=== PATIENT | female | born 1965 | race Caucasian/White ===

== ENCOUNTER 2019-07-20 03:31 | Emergency (ER) | payer SELFPAY ==
--- NOTE | 2019-07-20 05:16 | ER Document Report ---
HPI - HPI Patient complains to provider of: Urinary symptoms Time Seen by Provider: 07/20/19 04:49 Onset: Other - 1 year Onset/Duration: Worse Quality of pain: Burning Pain Level: 4 Context: Patient presents complaining of dysuria and malodorous urine. Patient complains of nausea as well. Patient states she has had dysuria for the past year but the symptoms worsened today. Patient states that she has had nausea for the past 2 years. Patient denies any fever. Patient denies any abdominal tenderness. Associated Symptoms: Nausea, Other - Dysuria. denies: Fever, Vomiting Exacerbated by: Denies Relieved by: Denies Similar symptoms previously: Yes Recently seen / treated by doctor: No - ROS ROS below otherwise negative: Yes Systems Reviewed and Negative: Yes All other systems reviewed and negative - CONSTITUTIONAL Constitutional: DENIES: Fever, Chills - NEURO Neurology: REPORTS: Headache. DENIES: Weakness - URINARY Urinary: REPORTS: Dysuria, Urgency, Frequency - DERM Skin Color: Normal Skin Problems: None Past Medical History - General Information source: Patient - Social History Smoking Status: Never Smoker Frequency of alcohol use: None Drug Abuse: None Lives with: Alone Family History: Reviewed & Not Pertinent Patient has homicidal ideation: No Pulmonary Medical History: Reports: Hx Asthma Renal/ Medical History: Reports: Hx Kidney Stones Musculoskeletal Medical History: Reports Hx Arthritis Past Surgical History: Reports: Hx Hysterectomy, Hx Urinary Tract Surgery Vertical Provider Document - CONSTITUTIONAL Agree With Documented VS: Yes Exam Limitations: No Limitations General Appearance: WD/WN, No Apparent Distress - HEENT HEENT: Atraumatic, Normocephalic - NECK Neck: Normal Inspection - RESPIRATORY Respiratory: Breath Sounds Normal, No Respiratory Distress - CARDIOVASCULAR Cardiovascular: Regular Rate, Regular Rhythm - GI/ABDOMEN Gastrointestinal: Abdomen Soft, Abdomen Tender - suprapubic - BACK Back: Abnormal Inspection - Lower lumbar paraspinal tenderness. negative: CVA Tenderness-Right, CVA Tenderness-Left - MUSCULOSKELETAL/EXTREMETIES Musculoskeletal/Extremeties: ODELL SELLERS - NEURO Level of Consciousness: Awake, Alert, Appropriate Motor/Sensory: No Motor Deficit - DERM Integumentary: Warm, Dry, No Rash Course - Re-evaluation Re-evalutation: 07/20/19 07:00 Patient nontoxic in appearance. Patient with complaints of malodorous urine and dysuria. Patient with very minimal hematuria and leukocyte esterase. Patient denies any concerns about STI as she has not been sexually active for 4 years. No concern for pyelonephritis or any obstructive uropathy at this time. Patient encouraged to follow-up with a primary care provider for recheck. Discussed wo rsening signs or symptoms that patient should return immediately for. - Vital Signs Vital signs: Temp Pulse Resp BP Pulse Ox 98.1 F 97 16 148/82 H 97 07/20/19 03:40 07/20/19 03:40 07/20/19 03:40 07/20/19 03:40 07/20/19 03:40 - Laboratory Laboratory results interpreted by me: 07/20/19 06:46 Labs- Entire Visit 07/20/19 03:40 Urine Color STRAW Urine Appearance SLIGHTLY-CLOUDY Urine pH 8.0 Ur Specific [place] 1.010 Urine Protein NEGATIVE Urine Glucose (UA) NEGATIVE Urine Ketones NEGATIVE Urine Blood SMALL H Urine Nitrite NEGATIVE Urine Bilirubin NEGATIVE Urine Urobilinogen NEGATIVE Ur Leukocyte Esterase TRACE H Urine WBC (Auto) 1 Urine RBC (Auto) 0 Squamous Epi Cells Auto <1 Urine Mucus (Auto) RARE Urine Ascorbic Acid NEGATIVE Discharge - Discharge Clinical Impression: Dysuria, Nausea Condition: Stable Disposition: HOME, SELF-CARE Instructions: Antinausea Medication ([facility]), Cephalexin ([facility]), Nausea or Vomiting, Nonspecific ([facility]), Urinary Tract Infection ([facility]) Additional Instructions: Return immediately for any new or worsening symptoms Followup with your primary care provider, call tomorrow to make a followup appointment Prescriptions: Cephalexin Monohydrate [Keflex 500 mg Capsule] 500 mg PO BID 5 Days #10 capsule Phenazopyridine HCl [Pyridium 200 mg Tablet] 200 mg PO TID #15 tablet Ondansetron [Zofran Odt 4 mg Tablet] 1 tab PO Q6H PRN #15 tab.rapdis PRN Reason: Referrals: [facility] [Provider Group] - Follow up as needed [facility] [Provider Group] - Follow up as needed
[2019-07-20 05:18] LABS: APPEARANCE,URINE SLIGHTLY-CLOUDY; BILIRUBIN,URINE NEGATIVE (NEGATIVE); COLOR,URINE STRAW; GLUCOSE, URINE NEGATIVE (NEGATIVE); KETONES,URINE NEGATIVE (NEGATIVE); LEUKOCYTE ESTERASE,URINE TRACE (NEGATIVE); NITRITE,URINE NEGATIVE (NEGATIVE); PROTEIN,URINE NEGATIVE (NEGATIVE); UROBILINOGEN,URINE NEGATIVE mg/dL (<2.0)
[2019-07-20] MEDS ORDERED: CEPHALEXIN 500 MG CAPSULE PO ONE (06:17)
[2019-07-20] MEDS ORDERED: ONDANSETRON 4 MG TAB.RAPDIS PO ONE (06:17)
[2019-07-20 07:19] VITALS: BP 143/77
== END 2019-07-20 07:26 | disposition home or self-care (01) ==
LOC: ER 03:31
DX: R30.0 Dysuria (principal); R11.0 Nausea; R51 Headache; Z87.442 Personal history of urinary calculi; Z90.710 Acquired absence of both cervix and uterus
CPT/HCPCS: 99283; 87086; 87088; 81001; S0119

== ENCOUNTER 2019-07-23 11:41 | Emergency (ER) | payer SELFPAY ==
--- NOTE | 2019-07-23 12:32 | ER Document Report ---
ED Psych Disorder / Suicide <SAMI LAMBERT Raissa - Last Filed: 07/23/19 16:02> <GERALD OJEDA - Last Filed: 07/23/19 18:56> - General Chief Complaint: Psych Problem Stated Complaint: VOMITING Time Seen by Provider: 07/23/19 11:54 Notes: CHIEF COMPLAINT: Multiple complaints HPI: Patient is difficult to obtain history from given her disorganized thinking pattern. A 54-year-old female presenting for multiple complaints. Patient she has dysuria and malodorous urine. Patient states that she has shortness of breath. Patient states that she had a chip put in her arm to follow her because she is COVID positive. Patient states that she needs to confess to multiple different families and to the police but cannot verbalize directly what it is she needs to confess to. Patient denies significant medical history other than kidney stones. Patient denies any psychiatric history. Patient states that she lives alone in town does not have family nearby cannot verbalize directly what she does for work. Patient does not have fever. She does not have current chest pain or cough or shortness of breath. Patient believes that people are following her and listening in on her conversations and talking about her no matter where she goes or what she does. She does not know whether she has had a COVID test. ROS: See HPI -limited secondary to mental status Constitutional: no fever Eyes: no drainage, no blurred vision ENT: no runny nose, no sore throat Cardiovascular: no chest pain Resp: no SOB, no cough GI: no vomiting, no diarrhea, + abdominal pain : + dysuria Integumentary: no rash Allergy: no hives Musculoskeletal: no extremity pain or swelling Neurological: no numbness/tingling, no weakness MEDICATIONS: I agree with the patient medications as charted by the RN. ALLERGIES: I agree with the allergies as charted by the RN. PAST MEDICAL HISTORY/PAST SURGICAL HISTORY: Reviewed and agree as charted by RN. SOCIAL HISTORY: Reviewed and agree as charted by RN. FAMILY HISTORY: No significant familial comorbid conditions directly related to patient complaint EXAM: Reviewed vital signs as charted by RN. CONSTITUTIONAL: Alert and oriented but answering all questions inappropriately. Well-appearing; well-nourished HEAD: Normocephalic; atraumatic EYES: PERRL; Conjunctivae clear, sclerae non-icteric ENT: normal nose; no rhinorrhea; moist mucous membranes; pharynx without lesions noted, no uvula edema or deviation, no tonsillar hypertrophy, phonation normal NECK: Supple without meningismus; non-tender; no cervical lymphadenopathy, no masses CARD: RRR; no murmurs, no clicks, no rubs, no gallops; symmetric distal pulses RESP: Normal chest excursion without splinting or tachypnea; breath sounds clear and equal bilaterally; no wheezes, no rhonchi, no rales, pulse oximetry 99% on room air not hypoxic ABD/GI: Normal bowel sounds; non-distended; soft, non-tender, no rebound, no guarding; no palpable organomegaly or masses. BACK: The back appears normal and is non-tender to palpation, there is no CVA tenderness EXT: Normal ROM in all joints; non-tender to palpation; no cyanosis, no effusions, no edema SKIN: Normal color for age and race; warm; dry; good turgor; no acute lesions noted NEURO: Moves all extremities equally; Motor and sensory function intact PSYCH: The patient's mood and manner are confused, paranoid, easily distracted, sense of persecution. Grooming and personal hygiene are appropriate. MDM: 54-year-old female presenting for multiple vague physical complaints. Patient is very paranoid believes she is being persecuted believes she has had a chip placed in her arm to track her because she is a COVID patient although she has never had a known COVID test. Patient believes that people are following her and listening in on her conversations. Patient is easily distracted in her conversation and has rambling conversations on multiple topics switching from one topic to another even though they are not related. Patient was seen several days ago for UTI symptoms, no notes about patient's mental status at that time. We have no other history on the patient that can be ascertained at this time. Will obtain screening psychiatric labs to ensure there is no organic cause. Will obtain chest x-ray, plan for CT if possible to ensure that there is no metastatic illness causing patient's paranoia and altered mentation (SAMI LAMBERT) Past Medical History - Social History Smoking Status: Unknown if Ever Smoked Family History: Reviewed & Not Pertinent Patient has homicidal ideation: No Pulmonary Medical History: Reports: Hx Asthma Renal/ Medical History: Reports: Hx Kidney Stones Musculoskeletal Medical History: Reports Hx Arthritis Past Surgical History: Reports: Hx Hysterectomy, Hx Urinary Tract Surgery <SAMI LAMBERT - Last Filed: 07/23/19 16:02> Physical Exam - Vital signs Vitals: Temp Pulse Resp BP Pulse Ox 97.8 F 95 20 137/91 H 97 07/23/19 11:56 07/23/19 11:56 07/23/19 11:56 07/23/19 11:56 07/23/19 11:56 Course - Laboratory Result Diagrams: 07/23/19 12:42 07/23/19 12:42 <SAMI LAMBERT - Last Filed: 07/23/19 16:02> - Laboratory Result Diagrams: 07/23/19 12:42 07/23/19 12:42 <GERALD OJEDA - Last Filed: 07/23/19 18:56> - Re-evaluation Re-evalutation: 07/23/19 12:36 I did speak to Odilia and Kyara from the psychiatric team about the patient 07/23/19 15:22 Patient is medically cleared for psychiatric service 07/23/19 16:[address] Von MD attending. will follow (SAMI LAMBERT) - Vital Signs Vital signs: Temp Pulse Resp BP Pulse Ox 97.8 F 95 20 137/91 H 97 07/23/19 12:09 07/23/19 11:56 07/23/19 11:56 07/23/19 11:56 07/23/19 11:56 - Laboratory Laboratory results interpreted by me: 07/23/19 07/23/19 12:42 13:10 Urine Ketones TRACE H Salicylates < 1.0 L Acetaminophen < 10 L Discharge <SAMI LAMBERT - Last Filed: 07/23/19 16:02> <GERALD OJEDA - Last Filed: 07/23/19 18:56> - Discharge Clinical Impression: Psychosis Condition: Stable Disposition: HOME, SELF-CARE Additional Instructions: You have been evaluated by both medical and behavioral health teams for altered mental status and psychosis. You have been deemed appropriate for discharge. While in the emergency department you received the following services: Medical screening and assessment, nursing services, dietary services, pharmacological services, one-on-one counseling and/or psychotherapy, environmental services, and continuous observation by a patient safety belt installer. Medication recommendations have been provided and are as follows: one time dose of Zyprexa 5MG for mood stabilization/psychosis/impulse control and Cogentin 1MG to curb tremor side effects that can be common with medications like Zyprexa. It is important to take medications like these as prescribed in order to maintain symptoms of Post Traumatic Stress Disorder (often mimics Bipolar symptoms, depression and anxiety are also common). Altered Mental Status An altered mental status is a change in the normal functioning of the brain. This alteration of function can range from minor decreased brain function with some forgetfulness and confusion to complete loss of consciousness and coma. There are many possible causes of an altered mental status and include brain injuries such as trauma or strokes, problems with oxygen supply to the brain, fever and infections of the brain and/or elsewhere in the body, metabolic abnormalities such as low or high blood sugar, overdoses or excessive medication ingestion, and mental and psychiatric illnesses. Sometimes the altered mental status resolves and a definite cause is not determined. If a cause for your altered mental status was found, it has likely been corrected. Your evaluation has not shown any condition that requires that you be admitted to the hospital. It is believed that you are safe to leave and return to your home. If you have a return of your symptoms, you should return for re-evaluation. Bipolar Disorder (many of these symptoms are seen in Post Traumatic Stress Disorder, also depression and anxiety are common) Bipolar disorder is also called manic-depressive disorder. Depression alternates with brain hyperactivity called pedro. Each phase lasts from several days to a few weeks. We don't know exactly what causes bipolar disorder, but it's treatable. During the "manic phase," you may feel elated and energetic. You may have racing thoughts, rapid speech, increased activity, and grandiose ideas. During this time, you may not realize how poor your judgement is. Inappropriate spending, drug abuse, excessive alcohol use, marriage problems, and irresponsible sexual behavior are common during the manic phase. During the "depressive phase," you might feel depressed, guilty, worthless, fatigued, and unable to concentrate. You might have thoughts of suicide. Good treatments are available for bipolar disorder. [place] is a classic drug for bipolar disorder, and is still often useful. If the manic phase is very mild, an antidepressant alone can be prescribed. If the manic phase is very severe, an antipsychotic medicine (such as Haldol) may be needed. The treatment must be matched to your symptoms, so it's important to work closely with your psychiatric care provider. Contact your physician, the hospital emergency center, crisis line, or your counsellor if you are losing control or having self-destructive thoughts. Follow-Up: You are recommended to go voluntarily to [facility] for short term stabilization since you have been of medications for at least a couple months likely longer. They can assist with medication stabilization for 3-5 day period, discharge with prescriptions and provide stella kage for ongoing mental health services. If symptoms persist or worsen contact your physician immediately, return to the emergency department at any time or utilize mobile crisis. Referrals: [facility] [Outside] - Follow up as needed [facility] [Outside] - Follow up as needed [facility] [Outside] - Follow up as needed (Walk in Sunday-Sunday 8:00AM-12:00PM) [facility] [Outside] - Follow up as needed (Walk in Sunday-Sunday from 8:00AM-4:30PM)
[2019-07-23 12:53] LABS: ABSOLUTE LYMPHOCYTES (AUTO) 1.6 10^3/uL (0.5-4.7); ABSOLUTE MONOCYTES (AUTO) 0.4 10^3/uL (0.1-1.4); ABSOLUTE NEUT (AUTO) 2.2 10^3/uL (1.7-8.2); BASOPHILS % (AUTO) 0.7 % (0-2); EOSINOPHILS % (AUTO) 0.5 % (0-6); HEMATOCRIT 40.6 % (36.0-47.0); HEMOGLOBIN 14.2 g/dL (12.0-15.5); LYMPHOCYTES % (AUTO) 37.8 % (13-45); MEAN CORPUSCULAR HEMOGLOBIN 31.6 pg (27.0-33.4); MEAN CORPUSCULAR VOLUME 91 fl (80-97); MONOCYTES % (AUTO) 8.7 % (3-13); PLATELET COUNT 234 10^3/uL (150-450); RED BLOOD COUNT 4.49 10^6/uL (3.72-5.28); SEGMENTED NEUTROPHILS % (AUTO) 52.3 % (42-78); TOTAL CELLS COUNTED % (AUTO) 100 %; WHITE BLOOD COUNT 4.1 10^3/uL (4.0-10.5)
[2019-07-23 13:15] LABS: ALBUMIN 4.6 g/dL (3.5-5.0); ALKALINE PHOSPHATASE 94 U/L (38-126); ANION GAP 7 (5-19); ASPARTATE AMINO TRANSFERASE 23 U/L (14-36); BILIRUBIN,TOTAL 0.5 mg/dL (0.2-1.3); BLOOD UREA NITROGEN 18 mg/dL (7-20); CALCIUM 10.1 mg/dL (8.4-10.2); CARBON DIOXIDE 30 mmol/L (22-30); CHLORIDE 101 mmol/L (98-107); GLUCOSE 87 mg/dL (75-110); POTASSIUM 4.2 mmol/L (3.6-5.0)
[2019-07-23 13:16] LABS: ACETAMINOPHEN < 10 ug/mL (10-30); ALCOHOL < 10 mg/dL (NONE DETECTED); SALICYLATE < 1.0 mg/dL (2.0-20.0)
--- NOTE | 2019-07-23 14:02 | RADIOLOGY REPORT (SQ) ---
EXAM DESCRIPTION: CHEST SINGLE VIEW IMAGES COMPLETED DATE/TIME: 07/23/2019 1:50 pm REASON FOR STUDY: AMS COMPARISON: None. EXAM PARAMETERS: NUMBER OF VIEWS: One view. TECHNIQUE: An AP view of the chest was obtained. RADIATION DOSE: NA LIMITATIONS: None. FINDINGS: LUNGS AND PLEURA: No consolidation, pleural effusion or pneumothorax. MEDIASTINUM AND HILAR STRUCTURES: No mediastinal or hilar contour abnormality. HEART AND VASCULAR STRUCTURES: The cardiac silhouette and pulmonary vasculature are within normal [place] its. BONES: No acute findings. HARDWARE: None in the chest. OTHER: No other finding. IMPRESSION: No acute cardiopulmonary process. TECHNICAL DOCUMENTATION: JOB ID: [id number] 2010 [employer]- All Rights Reserved Reading location - IP/workstation name: [email or web address]
--- NOTE | 2019-07-23 14:37 | RADIOLOGY REPORT (SQ) ---
EXAM DESCRIPTION: CT HEAD WITHOUT IMAGES COMPLETED DATE/TIME: 07/23/2019 2:21 pm REASON FOR STUDY: AMS COMPARISON: None. TECHNIQUE: Axial images acquired through the brain without intravenous contrast. Images reviewed wi th bone, brain and subdural windows. Additional sagittal and coronal reconstructions were generated. Images stored on PACS. All CT scanners at this facility use dose modulation, iterative reconstruction, and/or weight based d osing when appropriate to reduce radiation dose to as low as reasonably achievable (ALARA). [facility]: Dose Right [facility]: CareDose [facility]: Dose Right [facility]: Teradose 4D [facility]: [employer] RADIATION DOSE: CT Rad equipment meets quality standard of care and radiation dose reduction techniq ues were employed. CTDIvol: 53.2 mGy. DLP: 1070 mGy-cm. LIMITATIONS: None. FINDINGS: There is no acute intracranial hemorrhage, vascular territorial infarct, extra-axial fluid collection, mass effect or midline shift. The benitez-white matter differentiation is preserved. Ther e is no effacement of the cerebral sulci or basal subarachnoid cisterns. The caliber of the ventricl es is concordant with the degree of sulcation. The orbits and globes are intact. The paranasal sinuses are clear. There is no fracture of the calv arium. IMPRESSION: No acute intracranial abnormality. EVIDENCE OF ACUTE STROKE: NO. COMMENT: Quality ID # [id number]: Final reports with documentation of one or more dose reduction techniques (e.g., Automated exposure control, adjustment of the mA and/or kV according to patient size, use of iterative reconstruction technique) TECHNICAL DOCUMENTATION: JOB ID: [id number] 2010 [employer]- All Rights Reserved Reading location - IP/workstation name: [email or web address]
[2019-07-23 16:53] LABS: APPEARANCE,URINE CLEAR; BILIRUBIN,URINE NEGATIVE (NEGATIVE); CALCIUM OXALATE CRYSTALS,URINE FEW /HPF; COLOR,URINE YELLOW; GLUCOSE, URINE NEGATIVE (NEGATIVE); KETONES,URINE TRACE mg/dL (NEGATIVE); LEUKOCYTE ESTERASE,URINE NEGATIVE (NEGATIVE); NITRITE,URINE NEGATIVE (NEGATIVE); PROTEIN,URINE NEGATIVE (NEGATIVE); UROBILINOGEN,URINE NEGATIVE mg/dL (<2.0)
[2019-07-23 17:08] LABS: URINE AMPHETAMINES SCREEN NEGATIVE; URINE BARBITURATES SCREEN NEGATIVE; URINE BENZODIAZEPINES SCREEN NEGATIVE; URINE COCAINE SCREEN NEGATIVE; URINE MARIJUANA (THC) SCREEN NEGATIVE; URINE METHADONE SCREEN NEGATIVE; URINE PHENCYCLIDINE SCREEN NEGATIVE
[2019-07-23] MEDS ORDERED: OLANZAPINE 5 MG TABLET PO ONE (18:15)
[2019-07-23] MEDS ORDERED: BENZTROPINE MESYLATE 1 MG TABLET PO ONE (18:15)
--- NOTE | 2019-07-23 19:29 | ER Document Report ---
ED Medical Screen (RME) - General Chief Complaint: Psych Problem Stated Complaint: VOMITING Time Seen by Provider: 07/23/19 11:54 Primary Care Provider: [facility] [Outside] - Follow up as needed (Walk in Sunday- Sunday 8:00AM-12:00PM) [facility] [Outside] - Follow up as needed [facility] [Outside] - Follow up as needed (Walk in Sunday-Sunday from 8:00AM-4:30PM) [facility] [Outside] - Follow up as needed Past Medical History Pulmonary Medical History: Reports: Hx Asthma Renal/ Medical History: Reports: Hx Kidney Stones Musculoskeltal Medical History: Reports Hx Arthritis Past Surgical History: Reports: Hx Hysterectomy, Hx Urinary Tract Surgery Physical Exam - Vital signs Vitals: Temp Pulse Resp BP Pulse Ox 97.8 F 95 20 137/91 H 97 07/23/19 11:56 07/23/19 11:56 07/23/19 11:56 07/23/19 11:56 07/23/19 11:56 Course - Vital Signs Vital signs: Temp Pulse Resp BP Pulse Ox 97.8 F 95 20 137/91 H 97 07/23/19 12:09 07/23/19 11:56 07/23/19 11:56 07/23/19 11:56 07/23/19 11:56 - Laboratory Result Diagrams: 07/23/19 12:42 07/23/19 12:42 Laboratory results interpreted by me: 07/23/19 07/23/19 12:42 13:10 Urine Ketones TRACE H Salicylates < 1.0 L Acetaminophen < 10 L Doctor's Discharge - Discharge Clinical Impression: Psychosis Qualifiers: Psychosis type: unspecified psychosis type Qualified Code(s): F29 - Unspecified psychosis not due to a substance or known physiological condition Condition: Stable Disposition: PSYCH HOSP/UNIT Instructions: Schizophrenia ([facility]) Additional Instructions: You have been evaluated by both medical and behavioral health teams for altered mental status and psychosis. You have been deemed appropriate for discharge. While in the emergency department you received the following services: Medical screening and assessment, nursing services, dietary services, pharmacological services, one-on-one counseling and/or psychotherapy, environmental services, and continuous observation by a patient marine safety officer. Medication recommendations have been provided and are as follows: one time dose of Zyprexa 5MG for mood stabilization/psychosis/impulse control and Cogentin 1MG to curb tremor side effects that can be common with medications like Zyprexa. It is important to take medications like these as prescribed in order to maintain symptoms of Post Traumatic Stress Disorder (often mimics Bipolar symptoms, depression and anxiety are also common). Altered Mental Status An altered mental status is a change in the normal functioning of the brain. This alteration of function can range from minor decreased brain function with some forgetfulness and confusion to complete loss of consciousness and coma. There are many possible causes of an altered mental status and include brain injuries such as trauma or strokes, problems with oxygen supply to the brain, fever and infections of the brain and/or elsewhere in the body, metabolic abnormalities such as low or high blood sugar, overdoses or excessive medication ingestion, and mental and psychiatric illnesses. Sometimes the altered mental status resolves and a definite cause is not determined. If a cause for your altered mental status was found, it has likely been corrected. Your evaluation has not shown any condition that requires that you be admitted to the hospital. It is believed that you are safe to leave and return to your home. If you have a return of your symptoms, you should return for re-evaluation. Bipolar Disorder (many of these symptoms are seen in Post Traumatic Stress Disorder, also depression and anxiety are common) Bipolar disorder is also called manic-depressive disorder. Depression alternates with brain hyperactivity called pedro. Each phase lasts from several days to a few weeks. We don't know exactly what causes bipolar disorder, but it's treatable. During the "manic phase," you may feel elated and energetic. You may have racing thoughts, rapid speech, increased activity, and grandiose ideas. During this time, you may not realize how poor your judgement is. Inappropriate spending, drug abuse, excessive alcohol use, marriage problems, and irresponsible sexual behavior are common during the manic phase. During the "depressive phase," you might feel depressed, guilty, worthless, fatigued, and unable to concentrate. You might have thoughts of suicide. Good treatments are available for bipolar disorder. [place] is a classic drug for bipolar disorder, and is still often useful. If the manic phase is very mild, an antidepressant alone can be prescribed. If the manic phase is very severe, an antipsychotic medicine (such as Haldol) may be needed. The treatment must be matched to your symptoms, so it's important to work closely with your psychiatric care provider. Contact your physician, the hospital emergency center, crisis line, or your counsellor if you are losing control or having self-destructive thoughts. Follow-Up: You are recommended to go voluntarily to [facility] for short term stabilization since you have been of medications for at least a couple months likely longer. They can assist with medication stabilization for 3-5 day period, discharge with prescriptions and provide linkage for ongoing mental health services. If symptoms persist or worsen contact your physician immediately, return to the emergency department at any time or utilize mobile crisis. Referrals: [facility] [Outside] - Follow up as needed (Walk in Sunday- Sunday 8:00AM-12:00PM) [facility] [Outside] - Follow up as needed [facility] [Outside] - Follow up as needed (Walk in Sunday-Sunday from 8:00AM-4:30PM) [facility] [Outside] - Follow up as needed
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
--- NOTE | 2019-07-23 20:41 | EKG REPORT ---
SEVERITY:- ABNORMAL ECG - SINUS RHYTHM CONSIDER LEFT VENTRICULAR HYPERTROPHY : Confirmed by: Sofia Walsh 23-Jul-2019 20:40:11
[2019-07-23 21:44] VITALS: BP 149/80
== END 2019-07-23 20:00 ==
LOC: ER 11:41
DX: F29 Unspecified psychosis not due to a substance or known physiological condition (principal); R30.0 Dysuria; J45.909 Unspecified asthma, uncomplicated; Z87.442 Personal history of urinary calculi
CPT/HCPCS: 36415; 70450; 71045; 80053; 80307; 81001; 85025; 93005; 93010; 99285

== ENCOUNTER → 2019-08-06 | Outpatient (CLI) | payer SELFPAY ==
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
[2019-08-06 09:39] VITALS: BP 146/75
[2019-08-06 12:00] LABS: A TYPE INFLUENZA AG NEGATIVE (NEGATIVE); B INFLUENZA AG NEGATIVE (NEGATIVE)
== END ==
LOC: RDC 08:46
PROVIDERS: ATTEND Nurse Practitioner Family
DX: Z20.828 Contact with and (suspected) exposure to other viral communicable diseases (principal); R50.9 Fever, unspecified; M79.10 Myalgia, unspecified site; R09.89 Other specified symptoms and signs involving the circulatory and respiratory systems; J02.9 Acute pharyngitis, unspecified; R05 Cough; R06.02 Shortness of breath; R11.0 Nausea; R51 Headache; R19.7 Diarrhea, unspecified; J45.909 Unspecified asthma, uncomplicated
CPT/HCPCS: 87070; 87635; 87804; 87880; 99211; C9803

== ENCOUNTER 2019-10-27 06:19 | Emergency (ER) | payer SELFPAY ==
--- NOTE | 2019-10-27 08:17 | EKG REPORT ---
SEVERITY:- ABNORMAL ECG - SINUS RHYTHM LEFT ATRIAL ABNORMALITY PROBABLE LEFT VENTRICULAR HYPERTROPHY : Confirmed by: Sofia Walsh 27-Oct-2019 08:17:25
[2019-10-27 08:46] LABS: APPEARANCE,URINE CLEAR; BILIRUBIN,URINE NEGATIVE (NEGATIVE); COLOR,URINE YELLOW; GLUCOSE, URINE NEGATIVE (NEGATIVE); KETONES,URINE NEGATIVE (NEGATIVE); LEUKOCYTE ESTERASE,URINE SMALL (NEGATIVE); NITRITE,URINE NEGATIVE (NEGATIVE); PROTEIN,URINE NEGATIVE (NEGATIVE); UROBILINOGEN,URINE NEGATIVE mg/dL (<2.0)
[2019-10-27] MEDS ORDERED: ASPIRIN 81 MG TABLET, CHEWABLE PO ONE (08:48)
[2019-10-27] MEDS ORDERED: ONDANSETRON 4 MG TAB.RAPDIS PO ONE (08:51)
--- NOTE | 2019-10-27 08:53 | ER Document Report ---
ED General - General Chief Complaint: Abdominal Pain Stated Complaint: NAUSEA/BODY PAIN Time Seen by Provider: 10/27/19 08:13 Primary Care Provider: [facility] [Provider Group] - Follow up tomorrow HILDA HINES MD [ACTIVE STAFF] - Follow up tomorrow Mode of Arrival: Ambulatory Information source: Patient Notes: Patient presents with various complaints. Patient states she had lower pelvic discomfort for the past 4 months. Patient states she is had vaginal burning for the past week with a vaginal odor. Patient states she is had some dysuria as well as urinary frequency. Patient states that she has been told that it smells as though she has cancer or that she has an odor of about her and patient is concerned that she may have cancer. Patient denies any fever. Patient denies any vomiting or diarrhea. Patient does complain of mild cough for the past 3 months with chest discomfort for the past 2 days. - HPI Quality of pain: Burning Pain Level: 3 Associated symptoms: Chest pain, Nonproductive cough. denies: Diarrhea, Fever, Headache, Nausea, Vomiting, Shortness of breath, Sore throat Exacerbated by: Denies Relieved by: Denies Similar symptoms previously: Yes Recently seen / treated by doctor: No - Related Data Allergies/Adverse Reactions: NSAIDS (Non-Steroidal Anti-Inflamma Allergy (Verified 10/27/19 07:39) acetaminophen [From Percocet] Adverse Reaction (Verified 10/27/19 07:39) hydrocodone [From Vicodin] Adverse Reaction (Verified 10/27/19 07:39) morphine Adverse Reaction (Verified 10/27/19 07:39) oxycodone [From Percocet] Adverse Reaction (Verified 10/27/19 07:39) Past Medical History - General Information source: Patient - Social History Smoking Status: Never Smoker Frequency of alcohol use: None Drug Abuse: None Occupation: None Family History: Reviewed & Not Pertinent Pulmonary Medical History: Reports: Hx Asthma Renal/ Medical History: Reports: Hx Kidney Stones Musculoskeletal Medical History: Reports Hx Arthritis Psychiatric Medical History: Reports: Hx Anxiety, Hx Bipolar Disorder, Hx Post Traumatic Stress Disorder Past Surgical History: Reports: Hx Hysterectomy, Hx Urinary Tract Surgery Review of Systems - Review of Systems Constitutional: No symptoms reported. denies: Fever EENT: No symptoms reported Cardiovascular: Chest pain Respiratory: Cough. denies: Short of breath Gastrointestinal: Abdominal pain. denies: Diarrhea, Nausea, Vomiting Genitourinary: Dysuria, Frequency Female Genitourinary: Vaginal discharge, Vaginal odor Musculoskeletal: No symptoms reported Skin: No symptoms reported Hematologic/Lymphatic: No symptoms reported Neurological/Psychological: No symptoms reported Physical Exam - Vital signs Vitals: Temp Pulse Resp BP Pulse Ox 97.5 F 72 18 139/107 H 99 10/27/19 06:30 10/27/19 06:30 10/27/19 06:30 10/27/19 06:30 10/27/19 06:30 - General General appearance: Appears well, Alert In distress: None - HEENT Head: Normocephalic, Atraumatic Eyes: Normal Conjunctiva: Normal Nasal: Normal Mouth/Lips: Normal Mucous membranes: Normal Neck: Normal, Supple. No: Lymphadenopathy - Respiratory Respiratory status: No respiratory distress Chest status: Tender Breath sounds: Normal Chest palpation: Tender - Cardiovascular Rhythm: Regular Heart sounds: S1 appreciated, S2 appreciated Murmur: No - Abdominal Inspection: Normal Distension: No distension Bowel sounds: Normal Tenderness: Tender - lower pelvic. No: Guarding Organomegaly: No organomegaly - Genitourinary External exam: Normal Speculum exam: Other - post treatment changes consistent with history of hysterectomy. No: Vaginal discharge Bimanuel exam: Normal Notes: RN Marta as standby - Back Back: Normal, Nontender. No: CVA tenderness - Extremities General upper extremity: Normal inspection, Nontender, Normal strength General lower extremity: Normal inspection, Nontender, Normal strength - Neurological Neuro grossly intact: Yes Cognition: Normal Royal Coma Scale Eye Opening: Spontaneous Patricio Coma Scale Verbal: Oriented Patricio Coma Scale Motor: Obeys Commands Royal Coma Scale Total: 15 - Psychological Associated symptoms: Normal affect, Normal mood - Skin Skin Temperature: Warm Skin Moisture: Dry Skin Color: Normal Course - Re-evaluation Re-evalutation: 10/27/19 08:53 Patient awake alert and oriented, patient vague and evasive regarding her medi ilya history. Review of patient's previous record demonstrates a history of PTSD, bipolar and anxiety with a previous history of psychosis in which she did not want to be on medications as she did not like the way they made her feel. 10/27/19 14:33 Patient with minimal UTI noted on urinalysis, will culture urine and place patient on a short course of antibiotics. Presentation of chest pain in an otherwise well appearing patient. Low clinical suspicion for ACS given clinical history, exam, EKG without ST elevations or depressions, and negative initial troponin. HEART score less than or equal to 3. PE also seems unlikely given clinical history, absence of tachycardia or dyspnea. CXR without evidence of pneumothorax or pneumonia. No widened mediastinum. Chest pain in a patient without evidence of cardiac or other serious etiology on workup today. I discussed with patient that, based on their age, risk factors and emergency department testing today, the likelihood that their symptoms are related to a heart attack is very low. The patient demonstrates decision making capacity and has verbalized an understanding of these risks to me. Based on this, the patient has chosen to follow-up as an outpatient. Usual chest pain return precautions reviewed. The patient states understanding and agreement with this plan. - Vital Signs Vital signs: Temp Pulse Resp BP Pulse Ox 98.8 F 79 21 H 117/79 99 10/27/19 15:24 10/27/19 15:03 10/27/19 15:03 10/27/19 15:03 10/27/19 15:03 - Laboratory Result Diagrams: 10/27/19 10:00 10/27/19 10:00 Laboratory results interpreted by me: 10/27/19 10/27/19 08:11 10:00 Magnesium 2.4 H Urine Blood SMALL H Ur Leukocyte Esterase SMALL H 10/27/19 14:33 Labs- All tests 24 hr 10/27/19 10/27/19 10/27/19 08:11 10:00 10:00 WBC 4.1 RBC 4.41 Hgb 13.8 Hct 39.6 MCV 90 MCH 31.2 MCHC 34.8 RDW 12.8 Plt Count 247 Lymph % (Auto) 40.0 [place] % (Auto) 7.6 Eos % (Auto) 1.6 Baso % (Auto) 0.3 Absolute Neuts (auto) 2.1 Absolute Lymphs (auto) 1.6 Absolute Monos (auto) 0.3 Absolute Eos (auto) 0.1 Absolute Basos (auto) 0.0 Seg Neutrophils % 50.5 Sodium 138.3 Potassium 4.0 Chloride 101 Carbon Dioxide 30 Anion Gap 7 BUN 12 Creatinine 0.79 Est GFR ( Amer) > 60 Est GFR (MDRD) Non-Af > 60 Glucose 104 Calcium 10.0 Magnesium 2.4 H Total Bilirubin 0.7 Direct Bilirubin 0.0 Neonat Total Bilirubin Not Reportable Neonat Direct Bilirubin Not Reportable Neonat Indirect Bili Not Reportable AST 27 ALT 15 Alkaline Phosphatase 101 Creatine Kinase 128 Troponin I Total Protein 8.1 Albumin 4.7 TSH Urine Color YELLOW Urine Appearance CLEAR Urine pH 5.0 Ur Specific [place] 1.010 Urine Protein NEGATIVE Urine Glucose (UA) NEGATIVE Urine Ketones NEGATIVE Urine Blood SMALL H Urine Nitrite NEGATIVE Urine Bilirubin NEGATIVE Urine Urobilinogen NEGATIVE Ur Leukocyte Esterase SMALL H Urine WBC (Auto) 1 Urine RBC (Auto) 1 Urine Bacteria (Auto) TRACE Squamous Epi Cells Auto 1 Urine Mucus (Auto) RARE Urine Ascorbic Acid NEGATIVE Bacteria (Wet Prep) Trichomonas (Wet Prep) Vaginal WBC Vaginal Yeast Chlamydia DNA (PCR) N.gonorrhoeae DNA (PCR) 10/27/19 10/27/19 10/27/19 10:00 10:00 11:47 WBC RBC Hgb Hct MCV MCH MCHC RDW Plt Count Lymph % (Auto) [place] % (Auto) Eos % (Auto) Baso % (Auto) Absolute Neuts (auto) Absolute Lymphs (auto) Absolute Monos (auto) Absolute Eos (auto) Absolute Basos (auto) Seg Neutrophils % Sodium Potassium Chloride Carbon Dioxide Anion Gap BUN Creatinine Est GFR ( Amer) Est GFR (MDRD) Non-Af Glucose Calcium Magnesium Total Bilirubin Direct Bilirubin Neonat Total Bilirubin Neonat Direct Bilirubin Neonat Indirect Bili AST ALT Alkaline Phosphatase Creatine Kinase Troponin I < 0.012 Total Protein Albumin TSH 2.27 Urine Color Urine Appearance Urine pH Ur Specific [place] Urine Protein Urine Glucose (UA) Urine Ketones Urine Blood Urine Nitrite Urine Bilirubin Urine Urobilinogen Ur Leukocyte Esterase Urine WBC (Auto) Urine RBC (Auto) Urine Bacteria (Auto) Squamous Epi Cells Auto Urine Mucus (Auto) Urine Ascorbic Acid Bacteria (Wet Prep) Trichomonas (Wet Prep) Vaginal WBC Vaginal Yeast Chlamydia DNA (PCR) NOT DETECTED N.gonorrhoeae DNA (PCR) NOT DETECTED 10/27/19 10/27/19 11:47 13:02 WBC RBC Hgb Hct MCV MCH MCHC RDW Plt Count Lymph % (Auto) [place] % (Auto) Eos % (Auto) Baso % (Auto) Absolute Neuts (auto) Absolute Lymphs (auto) Absolute Monos (auto) Absolute Eos (auto) Absolute Basos (auto) Seg Neutrophils % Sodium Potassium Chloride Carbon Dioxide Anion Gap BUN Creatinine Est GFR ( Amer) Est GFR (MDRD) Non-Af Glucose Calcium Magnesium Total Bilirubin Direct Bilirubin Neonat Total Bilirubin Neonat Direct Bilirubin Neonat Indirect Bili AST ALT Alkaline Phosphatase Creatine Kinase Troponin I < 0.012 Total Protein Albumin TSH Urine Color Urine Appearance Urine pH Ur Specific [place] Urine Protein Urine Glucose (UA) Urine Ketones Urine Blood Urine Nitrite Urine Bilirubin Urine Urobilinogen Ur Leukocyte Esterase Urine WBC (Auto) Urine RBC (Auto) Urine Bacteria (Auto) Squamous Epi Cells Auto Urine Mucus (Auto) Urine Ascorbic Acid Bacteria (Wet Prep) 3+ BACTERIA SEEN Trichomonas (Wet Prep) NO TRICHOMONAS SEEN Vaginal WBC FEW WBCS SEEN Vaginal Yeast NO YEAST SEEN Chlamydia DNA (PCR) N.gonorrhoeae DNA (PCR) - Diagnostic Test Radiology reviewed: Reports reviewed - EKG Interpretation by Me EKG shows normal: Sinus rhythm Rate: Normal Rhythm: NSR Voltage: Consistent with LVH When compared to previous EKG there are: No significant change Additional EKG results interpreted by me: 10/27/19 09:38 Sinus rhythm with a rate of 81, QTc 432, no significant change when compared to prior, no acute ischemic changes Discharge - Discharge Clinical Impression: Concern about vaginal odor, Encounter for screening laboratory testing for COVID-19 virus Chest pain Qualifiers: Chest pain type: unspecified Qualified Code(s): R07.9 - Chest pain, unspecified UTI (urinary tract infection) Qualifiers: Urinary tract infection type: site unspecified Hematuria presence: without hematuria Qualified Code(s): N39.0 - Urinary tract infection, site not specified Condition: Stable Disposition: HOME, SELF-CARE Instructions: COVID-19 Guidance for Persons Under Investigation, Abdominal Pain ([facility]), Chest Pain of Unclear Cause ([facility]), Urinary Tract Infection ([facility]) Additional Instructions: Return immediately for any new or worsening symptoms Followup with your primary care provider, call tomorrow to make a followup appointment Follow-up with a archives specialist for further evaluation, call tomorrow to make a follow-up appointment Prescriptions: Cephalexin Monohydrate [Keflex 500 mg Capsule] 500 mg PO BID 5 Days #10 capsule Ondansetron [Zofran Odt 4 mg Tablet] 1 tab PO Q6H PRN #8 tab.rapdis PRN Reason: Referrals: [facility] [Provider Group] - Follow up tomorrow HILDA HINES MD [ACTIVE STAFF] - Follow up tomorrow
--- NOTE | 2019-10-27 09:40 | RADIOLOGY REPORT (SQ) ---
EXAM DESCRIPTION: CHEST SINGLE VIEW IMAGES COMPLETED DATE/TIME: 10/27/2019 9:31 am REASON FOR STUDY: cp COMPARISON: 07/23/2019 EXAM PARAMETERS: NUMBER OF VIEWS: One view. TECHNIQUE: Single frontal radiographic view of the chest acquired. RADIATION DOSE: NA LIMITATIONS: None. FINDINGS: LUNGS AND PLEURA: No opacities, masses or pneumothorax. No pleural effusion. MEDIASTINUM AND HILAR STRUCTURES: No masses. Contour normal. HEART AND VASCULAR STRUCTURES: Heart normal in size. Normal vasculature. BONES: No acute findings. HARDWARE: None in the chest. OTHER: No other significant finding. IMPRESSION: NO ACUTE RADIOGRAPHIC FINDING IN THE CHEST. TECHNICAL DOCUMENTATION: JOB ID: [id number] [employer]- All Rights Reserved Reading location - IP/workstation name: [email or web address]
[2019-10-27 10:56] LABS: ABSOLUTE EOSINOPHILS # (AUTO) 0.1 10^3/uL (0.0-0.6); ABSOLUTE LYMPHOCYTES (AUTO) 1.6 10^3/uL (0.5-4.7); ABSOLUTE MONOCYTES (AUTO) 0.3 10^3/uL (0.1-1.4); ABSOLUTE NEUT (AUTO) 2.1 10^3/uL (1.7-8.2); BASOPHILS % (AUTO) 0.3 % (0-2); EOSINOPHILS % (AUTO) 1.6 % (0-6); HEMATOCRIT 39.6 % (36.0-47.0); HEMOGLOBIN 13.8 g/dL (12.0-15.5); MEAN CORPUSCULAR HEMOGLOBIN 31.2 pg (27.0-33.4); MEAN CORPUSCULAR HGB CONC 34.8 g/dL (32.0-36.0); MEAN CORPUSCULAR VOLUME 90 fl (80-97); MONOCYTES % (AUTO) 7.6 % (3-13); PLATELET COUNT 247 10^3/uL (150-450); RED BLOOD COUNT 4.41 10^6/uL (3.72-5.28); RED CELL DISTRIBUTION WIDTH 12.8 % (11.5-14.0); SEGMENTED NEUTROPHILS % (AUTO) 50.5 % (42-78); TOTAL CELLS COUNTED % (AUTO) 100 %; WHITE BLOOD COUNT 4.1 10^3/uL (4.0-10.5)
[2019-10-27 11:18] LABS: ALBUMIN 4.7 g/dL (3.5-5.0); ALKALINE PHOSPHATASE 101 U/L (38-126); ANION GAP 7 (5-19); ASPARTATE AMINO TRANSFERASE 27 U/L (14-36); BILIRUBIN,TOTAL 0.7 mg/dL (0.2-1.3); BLOOD UREA NITROGEN 12 mg/dL (7-20); CARBON DIOXIDE 30 mmol/L (22-30); CHLORIDE 101 mmol/L (98-107); CREATINE KINASE 128 U/L (30-135); GLUCOSE 104 mg/dL (75-110); TOTAL PROTEIN 8.1 g/dL (6.3-8.2)
[2019-10-27 12:03] LABS: BACTERIA (WET MOUNT) 3+ BACTERIA SEEN; T.VAGINALIS (WET MOUNT) NO TRICHOMONAS SEEN; WBCS (WET MOUNT) FEW WBCS SEEN; YEAST (WET MOUNT) NO YEAST SEEN
[2019-10-27 13:31] LABS: CHLAM PCR NOT DETECTED (NOT DETECT)
--- NOTE | 2019-10-27 13:34 | RADIOLOGY REPORT (SQ) ---
EXAM DESCRIPTION: U/S NON-OB PELVIS LTD W/O DOP IMAGES COMPLETED DATE/TIME: 10/27/2019 12:11 pm REASON FOR STUDY: lower pelvic pain. Complete hysterectomy in 2016. COMPARISON: None. TECHNIQUE: Dynamic and static grayscale images acquired of the pelvis via transabdominal approach an d recorded on PACS. Additional selected color Doppler and spectral images recorded. LIMITATIONS: None. FINDINGS: There has been a complete hysterectomy. No pelvic mass or fluid. No adnexal mass. IMPRESSION: Hysterectomy. No pelvic mass or fluid. TECHNICAL DOCUMENTATION: JOB ID: [id number] [employer]- All Rights Reserved Rev-07/27 Reading location - IP/workstation name: [email or web address]
[2019-10-27 15:25] VITALS: BP 121/73
== END 2019-10-27 15:36 | disposition home or self-care (01) ==
LOC: ER 06:19
DX: N39.0 Urinary tract infection, site not specified (principal); R07.9 Chest pain, unspecified; R10.2 Pelvic and perineal pain; R05 Cough; Z88.8 Allergy status to other drugs, medicaments and biological substances; J45.909 Unspecified asthma, uncomplicated; Z90.710 Acquired absence of both cervix and uterus; Z20.828 Contact with and (suspected) exposure to other viral communicable diseases
CPT/HCPCS: 93005; 99285; 36415; 87086; 87210; 82550; 83735; 84443; 85025; 87635; 80053; 81001; 84484; 87491; 87591; 71045; 76857; 93010; S0119; C9803